=== PATIENT | female | born 1965 | race Caucasian/White ===

== ENCOUNTER → 2016-09-03 | Outpatient (CLI) | payer OTHER ==
[~2016-09-03] MED LIST: ADVA500A INH; ALBU0.08 NEB; ALBU6.7H INH; ALBUAER3 INH; AUGM875 PO; CEPH-460 PO; CLON0.5T PO; LEVO112T2 PO; LEVO75TA42 PO; LORA-361 PO; MAGN400T14 PO; MEDR4PAK3 PO; MULT-135 PO; OXYC1TAB63 PO; PERC5TAB12 PO; PRED20 PO; TOPA50TA7 PO; TOPI50TA4 PO; VENTAER INH; VITA10002 PO; VITA100021 SL; VITA100064 PO
[2016-09-03 15:21] LABS: AUTOMATED NEUTROPHIL # 4.5 TH/MM3 (1.8-7.7); BASOPHIL % 0.4 % (0.0-2.0); EOSINOPHIL # 0.4 TH/MM3 (0-0.4); EOSINOPHIL % 5.5 % (0.0-4.0); HEMATOCRIT 42.5 % (35.0-46.0); HEMO FLAGS DIFF FINAL; LYMPH % 20.7 % (9.0-44.0); LYMPHOCYTE # 1.4 TH/MM3 (1.0-4.8); MEAN CORPUSCULAR HEMOGLOBIN 29.6 PG (27.0-34.0); MEAN CORPUSCULAR HGB CONC 32.6 % (32.0-36.0); MONO % 8.2 % (0.0-8.0); NEUT % 65.2 % (16.0-70.0); PLATELET COUNT 174 TH/MM3 (150-450); RED BLOOD COUNT 4.67 MIL/MM3 (4.00-5.30); RED CELL DISTRIBUTION WIDTH 14.3 % (11.6-17.2); WHITE BLOOD COUNT 6.8 TH/MM3 (4.0-11.0)
[2016-09-03 15:31] LABS: APTT (PATIENT) 28.4 SEC (24.3-30.1); INTERNATIONAL NORMALIZED RATIO 0.9 RATIO; PROTHROMBIN TIME - PATIENT 9.9 SEC (9.8-11.6)
[2016-09-03 15:40] LABS: ALT (GPT) 31 U/L (10-53); ANION GAP 7 MEQ/L (5-15); AST (GOT) 14 U/L (15-37); BLOOD UREA NITROGEN 10 MG/DL (7-18); CHLORIDE 110 MEQ/L (98-107); GLOMERULAR FILTRATION RATE 72 ML/MIN (>89); GLUCOSE,FASTING 110 MG/DL (74-99); POTASSIUM 3.9 MEQ/L (3.5-5.1); SODIUM (NA) 143 MEQ/L (136-145)
[2016-09-03 15:43] LABS: ALKALINE PHOSPHATASE 82 U/L (45-117); TOTAL BILIRUBIN ADULT 0.6 MG/DL (0.2-1.0)
--- NOTE | 2016-09-03 15:58 | RADRPT ---
EXAM DATE/TIME: 09/03/2016 15:40 [place] COMPARISON: No previous studies available for comparison. INDICATIONS : Evaluate for pneumonia, pneumothorax, or communicable disease. Pre op for ovarian surgery. MEDICAL HISTORY : asthma. SURGICAL HISTORY : Right lumpectomy. ENCOUNTER: Initial ACUITY: 1 day PAIN SCORE: 0/10 LOCATION: Bilateral chest FINDINGS: PA and lateral views of the chest demonstrate the lungs to be symmetrically aerated without evidence of mass, infiltrate or effusion. The cardiomediastinal contours are unremarkable. Osseous structure s are intact. CONCLUSION: 1. No acute cardiopulmonary findings. Sushant Chapman MD on September 03, 2016 at 15:55 Board Certified Radiologist. This report was verified electronically.
[2016-09-03 16:08] LABS: BHCG SCREEN QUALITATIVE 2 MIU/ML (0-5)
--- NOTE | 2016-09-04 17:39 | EKG ---
Date Performed: 09/03/2016 Time Performed: 14:45:19 PTAGE: 50 years EKG: Sinus rhythm Since previous tracing, no significant change noted BORDERLINE ECG PREVIOUS TRACING : 10/07/2008 06.12.26 DOCTOR: Yulissa Bazan Interpretating Date/Time 09/04/2016 17:37:50
== END ==
LOC: CPRE 14:12
PROVIDERS: ATTEND Obstetrics & Gynecology Gynecologic Oncology
DX: Z01.810 Encounter for preprocedural cardiovascular examination (principal); Z01.812 Encounter for preprocedural laboratory examination; Z01.818 Encounter for other preprocedural examination; Z15.01 Genetic susceptibility to malignant neoplasm of breast; R94.31 Abnormal electrocardiogram [ECG] [EKG]
CPT/HCPCS: 36415; 71020; 80053; 84703; 85025; 85610; 85730; 93005

== ENCOUNTER 2016-09-13 05:41 | Observation (INO) | payer OTHER ==
[~2016-09-13] VITALS: Ht 170.2 cm; Wt 184.4 kg
[2016-09-13] VITALS (7 sets, daily range): BP systolic 115–135; BP diastolic 55–86; PULSE 63–108; RESP 16–20; TEMP 96–98.1; O2SAT 92–100
[~2016-09-13 05:41] MED LIST changes: -ALBU6.7H INH; -AUGM875 PO; -CEPH-460 PO; -LEVO75TA42 PO; -MEDR4PAK3 PO; -OXYC1TAB63 PO; -PRED20 PO; -TOPI50TA4 PO; -VENTAER INH; -VITA10002 PO
[2016-09-13] MEDS ORDERED: LACTATED RINGER'S 1000 ML IV SCH (06:15)
[2016-09-13] MEDS ORDERED: SODIUM CHLORIDE FLUSH PRN IVF (06:15)
[2016-09-13] MEDS ORDERED: SODIUM CHLORID 0.9% 500 ML IV SCH (06:15)
[2016-09-13] MEDS ORDERED: INSULIN HUMAN REGULAR 1,000 UNITS/10 ML VIAL SQ PRN (06:15)
[2016-09-13] MEDS ORDERED: METOPROLOL TARTRATE 25 MG TAB PO PRN (06:15)
[2016-09-13] MEDS ORDERED: CEPH-460 PO (06:15)
[2016-09-13] MEDS ORDERED: ceFAZolin 2 GM PREMIX 50 ML IV SCH (06:15)
[2016-09-13] MEDS ORDERED: HEPARIN SODIUM - SQ 10,000 UNITS/ML VIAL SQ PRN (06:15)
[2016-09-13] MEDS ORDERED: LIDOCAINE 1%/EPINEPHrine 1:100,000 SOLN 30 ML VIAL ONE (06:57)
[2016-09-13] MEDS ORDERED: HYDROmorphone HCL PF 2 MG/ML VIAL ONE (07:12)
[2016-09-13] MEDS ORDERED: DICLOFENAC SODIUM 37.5 MG/ML VIAL IV PUSH ONE (07:12)
[2016-09-13] MEDS ORDERED: FAMOTIDINE 20 MG/2 ML VIAL ONE (07:29)
[2016-09-13] MEDS ORDERED: MIDAZOLAM HCL 2 MG/2 ML VIAL ONE ×2 (07:29→12:06)
[2016-09-13] MEDS ORDERED: SUGAMMADEX SODIUM 200 MG/2 ML VIAL IV PUSH ONE ×2 (07:33)
[2016-09-13] MEDS ORDERED: SODIUM CHLORIDE FLUSH BID IVF SCH (09:00)
[2016-09-13] MEDS ORDERED: ceFAZolin INJ 1,000 MG VIAL IV ONE (10:10)
[2016-09-13] MEDS ORDERED: METHYLENE BLUE 10 MG/ML VIAL OTHER ONE (10:28)
[2016-09-13] MEDS ORDERED: SODIUM CHLORIDE 0.9% FLUSH 5 ML FLUSH FLUSH PRN (11:30)
[2016-09-13] MEDS ORDERED: ONDANSETRON HCL 4 MG/2 ML VIAL IVP PRN (11:30)
[2016-09-13] MEDS ORDERED: diphenhydrAMINE HCL 25 MG CAP PO PRN (11:30)
[2016-09-13] MEDS ORDERED: oxyCODONE/ACETAMINOPHEN 5 MG/325 MG TAB PO PRN ×2 (11:30)
[2016-09-13] MEDS ORDERED: PROPOFOL 200 MG/20 ML AMP IV ONE (12:00)
[2016-09-13] MEDS ORDERED: ONDANSETRON HCL 4 MG/2 ML VIAL IV PUSH ONE (12:00)
[2016-09-13] MEDS ORDERED: ONDANSETRON INJ 8 MG in DEXTROSE 5% IN WATER INJ 50 ML IV PUSH PRN ×4 (12:00→15:00)
[2016-09-13] MEDS ORDERED: NORMOSOL R INJ 1,000 ML IV ONE (12:00)
[2016-09-13] MEDS ORDERED: PHENYLEPH/NS 1000 MCG/10 ML SYR IV ONE (12:00)
[2016-09-13] MEDS ORDERED: fentaNYL CITRATE 250 MCG/5 ML AMP ONE (12:06)
[2016-09-13] MEDS ORDERED: DO NOT ADM ANY ANTICOAGULANT DRUGS XX PRN (12:30)
[2016-09-13] MEDS: D5-1/2 NS + KCL 20 MEQ INJ 1,000 ML IV SCH ×2 (12:30→18:58)
[2016-09-13] MEDS ORDERED: *morphine SULFATE 8 MG/ML PERIprocedure ONLY ONE (12:38)
[2016-09-13] MEDS: CEPHALEXIN MONOHYDRATE 500 MG CAP PO SCH ×2 (13:00→20:43)
--- NOTE | 2016-09-13 14:54 | PD.ONC.PN ---
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 will continue to monitor Objective Data Date Time Temp Pulse Resp B/P Pulse Ox O2 Delivery O2 Flow Rate FiO2 09/13/16 13:45 98.2 78 16 119/76 96 Nasal Cannula 2 09/13/16 13:30 80 14 132/84 96 09/13/16 13:15 84 14 135/86 95 09/13/16 13:00 75 12 130/86 94 09/13/16 12:45 72 12 138/83 93 09/13/16 12:30 94 12 138/81 96 Nasal Cannula 3 09/13/16 12:15 83 13 138/86 95 09/13/16 12:00 82 16 132/77 98 Simple Mask 6 09/13/16 11:59 97.6 97 12 135/78 98 Simple Mask 6 09/13/16 06:17 98.1 108 20 135/86 95 09/13/16 09/13/16 09/13/16 07:00 15:00 23:00 Intake Total 2000 ml Output Total 550 ml Balance 1450 ml Laboratory Results Laboratory Tests Test 09/13/16 06:10 Blood Type A POSITIVE Antibody Screen NEGATIVE Blood Bank Comment Administered Medications Medications (Trade) Dose Ordered Sig/Janet Route PRN Reason Start Time Stop Time Status Last Admin Dose Admin Potassium Chloride/Dextrose/ Sod Cl (D5-1/2 NS + KCl 20 Meq Inj) 1,000 ml @ 125 mls/hr Q8H IV 09/13/16 11:29 09/13/16 12:30 Oxycodone/ Acetaminophen (Percocet 5-325 Mg) 2 tab Q4H PRN PO PAIN SCALE 6 TO 10 09/13/16 11:30 09/13/16 14:28 Objective Remarks GENERAL: Well-nourished, well-developed patient. in NAD SKIN: Warm and dry. HEAD: Normocephalic. EYES: No scleral icterus. No injection or drainage. CARDIOVASCULAR: Regular rate and rhythm without murmurs. RESPIRATORY: Breath sounds equal bilaterally. No accessory muscle use. GASTROINTESTINAL: Obese, Abdomen soft, non-tender, nondistended. SS are C/D/I EXTREMITIES: TEDs and SCDs... equal jewelsmith strength, normal ROM to fingers. NEUROLOGICAL: No obvious focal deficit. Awake but sleepy and oriented x3. PSYCHIATRIC: Appropriate mood and affect; insight and judgment normal. Assessment/Plan Problem List: (1) Post-operative pain Status: Acute Plan: Percocet PRN Toradol as scheduled (2) Nausea after anesthesia Status: Acute Plan: Zofran PRN (3) Post-operative state Status: Acute Plan: post op orders are in chart encourage IS to bedside OOB to chair ADAT anticipate D/C home in the next 24 to 48 hours Josseline Reed Sep 13, 2016 14:54
[2016-09-13] MEDS ORDERED: ONDANSETRON HCL 4 MG/2 ML VIAL IV PUSH PRN (15:00)
[2016-09-13] MEDS: RESP: ALBUTEROL 2.5 MG/3 ML NEB (SCH) NEB ×2 (16:00→21:11)
[2016-09-13] MEDS: HYDROmorphone HCL PF 1 MG/ML VIAL IVP PRN (16:00)
[2016-09-13] MEDS: clonazePAM 0.5 MG TAB PO SCH (18:05)
[2016-09-13] MEDS: KETOROLAC TROMETHAMINE 30 MG/ML (IVP) VIAL IVP SCH ×2 (18:06→23:25)
[2016-09-13] MEDS ORDERED: METOCLOPRAMIDE HCL 10 MG/2 ML VIAL IV ONE (19:15)
[2016-09-13] MEDS ORDERED: METOCLOPRAMIDE HCL 10 MG/2 ML VIAL IV PRN (19:15)
[2016-09-13] MEDS: BUDESONIDE-FORMOTEROL 160/4.5 MCG INHALER INH SCH (20:34)
[2016-09-13] MEDS ORDERED: SODIUM CHLORIDE 0.9% FLUSH 5 ML FLUSH FLUSH SCH (21:00)
[2016-09-14] VITALS: BP 109/71; PULSE 82; RESP 16; TEMP 97.8; O2SAT 98
[2016-09-14 04:00] VITALS: BP 109/56; PULSE 81; RESP 16; TEMP 97.6; O2SAT 96
[2016-09-14] MEDS: D5-1/2 NS + KCL 20 MEQ INJ 1,000 ML IV SCH (04:36)
[2016-09-14] MEDS: HYDROmorphone HCL PF 1 MG/ML VIAL IVP PRN (04:37)
[2016-09-14] MEDS: RESP: ALBUTEROL 2.5 MG/3 ML NEB (SCH) NEB ×2 (04:39→10:01)
[2016-09-14] MEDS ORDERED: LEVOTHYROXINE SODIUM 112 MCG TAB PO SCH (06:00)
[2016-09-14] MEDS: CEPHALEXIN MONOHYDRATE 500 MG CAP PO SCH (06:15)
[2016-09-14] MEDS: KETOROLAC TROMETHAMINE 30 MG/ML (IVP) VIAL IVP SCH (06:26)
[2016-09-14 07:07] LABS: BICARBONATE 25.3 MEQ/L (21.0-32.0); POTASSIUM 3.9 MEQ/L (3.5-5.1)
[2016-09-14] MEDS ORDERED: OXYC1TAB63 PO (07:18)
[2016-09-14 07:43] LABS: AUTOMATED NEUTROPHIL # 11.9 TH/MM3 (1.8-7.7); BASOPHIL # 0.1 TH/MM3 (0-0.2); BASOPHIL % 0.9 % (0.0-2.0); EOSINOPHIL % 0.2 % (0.0-4.0); LYMPH % 10.6 % (9.0-44.0); LYMPHOCYTE # 1.6 TH/MM3 (1.0-4.8); MEAN CELL VOLUME 89.3 FL (80.0-100.0); MEAN CORPUSCULAR HEMOGLOBIN 29.7 PG (27.0-34.0); MEAN CORPUSCULAR HGB CONC 33.3 % (32.0-36.0); MONO % 8.8 % (0.0-8.0); NEUT % 79.5 % (16.0-70.0); PLATELET COUNT 141 TH/MM3 (150-450); RED BLOOD COUNT 4.36 MIL/MM3 (4.00-5.30)
[2016-09-14 07:58] LABS: HEMO FLAGS AUTO DIFF; SCAN/DIFF AUTO DIFF CONFIRMED
[2016-09-14 07:59] LABS: PLATELET ESTIMATE SMEAR LOW (NORMAL); PLATELET MORPHOLOGY ENLARGED (NORMAL)
[2016-09-14 08:00] VITALS: BP 101/60; PULSE 82; RESP 16; TEMP 96.5; O2SAT 94
[2016-09-14] MEDS ORDERED: LORATADINE 10 MG TAB PO SCH (09:00)
[2016-09-14] MEDS ORDERED: TOPIRAMATE 25 MG TAB PO SCH (09:00)
[2016-09-14] MEDS: BUDESONIDE-FORMOTEROL 160/4.5 MCG INHALER INH SCH (09:00)
[2016-09-14 10:07] VITALS: O2SAT 99
[2016-09-14] MEDS: clonazePAM 0.5 MG TAB PO SCH (10:14)
--- NOTE | 2016-09-16 07:34 | MP ---
cc: LORRAINE MOLINA MD, KELLY L. MD DATE OF SURGERY: 09/13/2016 PREOPERATIVE DIAGNOSIS: 1. Premenopausal breast cancer. 2. BRCA mutation positive. 3. Desires therapeutic and prophylactic gynecologic surgery. POSTOPERATIVE DIAGNOSIS: 1. Premenopausal breast cancer. 2. BRCA mutation positive. 3. Desires therapeutic and prophylactic gynecologic surgery. OPERATION: Robotic-assisted laparoscopic hysterectomy, bilateral salpingo-oophorectomy. SURGEON Bianka Casillas MD. DENTAL LAB TECHNICIAN [place] assistant quality manager ANESTHESIA: General endotracheal anesthesia ESTIMATED BLOOD LOSS 200 cc IV FLUIDS 2000 cc URINE OUTPUT 250 cc HISTORY The patient is a 50-year-old female with diagnosis of premenopausal breast cancer treated with lumpectomy, radiation and medical therapy, underwent counseling and genetic testing found to have be have BRCA positive mutation. She has been counseled regarding these findings an increased risk of ovarian cancer, possible increased risk of endometrial cancer from her BRCA status, certainly at increased risk of endometrial cancer because of her body weight of 189 kg (BMI 68.2) and she is in favor of both bilateral salpingo-oophorectomy as well as complete hysterectomy. She has been counseled in our office. She is seen again today in the preop holding area where she is definitely in favor of hysterectomy and bilateral salpingo-oophorectomy. She understands the technical challenges involved in her case, the potential need to change to laparotomy, and we compared and contrasted surgery and recovery. She expressed good understanding and agrees. FINDINGS Uterine cavity sounded to 9 cm. There seems to be fundal leiomyoma otherwise the uterus appears normal. Tubes and ovaries grossly appear normal. Small nodule on the right ovary. There is no appreciable adenopathy. The intraperitoneal surfaces are smooth. There is no peritoneal implants. Preliminary pathology of the uterus showed a benign polyp in the endometrium and a benign nodule on the ovary. No evidence of malignancy. STATEMENT OF COMPLEXITY The complexity of this case was increased at all levels due to body habitus (weight 189 kg, BMI 68.2). Modifier should be applied accordingly. DESCRIPTION OF PROCEDURE: The patient taken to the operating room after a bariatric operating table had been secured, moved to the bed, placed in dorsolithotomy position after general endotracheal anesthesia was administered. Time-out was undertaken. The patient was identified by sight, recognition and hospital ID bracelet. She was carefully positioned in padded Dashawn stirrups. Her arms were padded and secured to the sides. She was further secured to the operating table with egg crate padding and tape in across chest over the shoulder fashion. All sites carefully inspected noted be properly aligned with no malalignments or pressure points. It was also noted that additional padding had been placed underneath the hips and along the torso between the arms and underneath the head and neck. She was prepped in sterile fashion, draped below the waist, placed in high lithotomy position. The cervix was grasped, uterine cavity was sounded, cervix was dilated. Large VCare manipulator inserted and secured in usual fashion. Woods catheter placed in the bladder. She was returned to low lithotomy position, change of sterile gloves was undertaken. We completed draping in anticipation of laparoscopy and confirmed that an orogastric airway was in the stomach on suction. With manual elevation of the abdominal wall and direct laparoscopic visualization 5 mm cannula placed in the left upper quadrant and atraumatic entry was confirmed. Carbon dioxide gas was insufflated into the peritoneal cavity. A 12 mm cannula placed in midline above the umbilicus, 8 mm cannula was placed in the right upper abdomen and left lateral abdomen and the original 5-mm cannula was exchanged for an 8-mm cannula. She was placed in Trendelenburg position and the Trendelenburg position was reduced a few degrees, and the intraperitoneal pressure was reduced from 15 to 12 with a CO2 infusion which helped improve for tidal volume and ventilatory pressures as well as her carbon dioxide levels that was met with satisfaction by the anesthesia team. The anatomy was surveyed with findings as described above. The small bowel was folded back on its mesenteric root, three Ray-Leyda sponges were placed around the root of the small bowel mesentery. The robotic system was brought into the operative field and attached in the usual fashion. Monopolar scissors, fenestrated bipolar forceps and Prograsp manipulators were placed in arms #1 2 and [address] my place at the surgeon's console. Right round ligament isolated, cauterized, transected. The anterior and posterior leafs of the broad ligament were opened. The right ureter was identified. The right infundibulopelvic ligament was isolated. The infundibulopelvic ligament was isolated to the level of the pelvic brim where it was cauterized and transected. Posterior peritoneum opened along the right side of the uterus and cervix, and the right vesicouterine peritoneum dissected off the lower uterine segment and cervix. The right uterine vessels were skeletonized, cauterized and transected as were the cardinal, paracervical and uterosacral ligaments. Attention was directed toward the left side where some adhesions were taken down to mobilize the colon and its attachments across the left pelvic sidewall. The left round ligament was isolated, caugerized, transected. The anterior and posterior leafs of the broad ligament were opened. The let ureter was identified. The left infundibulopelvic ligament was isolated. The intervening peritoneum was opened. The infundibulopelvic ligament was isolated to the level of the pelvic brim where it was cauterized and transected. Posterior peritoneum opened along the left side of the uterus and cervix. The left vesicouterine peritoneum was dissected off the lower uterine segment and cervix. The left uterine vessels were skeletonized, cauterized and transected as were the cardinal, paracervical and uterosacral ligaments. Circumferential colpotomy was performed following the cap of the VCare manipulator, the cervix from the upper vagina. The specimen was withdrawn transvaginally which included uterus, cervix, bilateral tubes and ovaries, and a pneumo-occluder balloon was placed in the vagina to maintain pneumoperitoneum. Instruments one and three exchanged for needle drivers as 0 Vicryl suture was introduced. The vaginal cuff was closed starting at the left corner, full thickness closure including the posterior peritoneum and uterosacral ligament tied via instrument tie. The closure was held on countertraction as a running continuous full-thickness closure was carried across the vaginal apex to the contralateral corner where it was similarly fixed, tied via instrument tie. The needle was cut and removed. The integrity of the bladder was confirmed by filling the bladder with saline dyed with methylene blue. The bladder distended nicely under pressure. There were no areas of blue to suggest thinning of the bladder. There was a good margin between the bladder edge and the vaginal cuff suture line. Good peristalsis of ureters bilaterally. The bladder was drained. The pelvis was thoroughly irrigated. Small bleeders rendered hemostatic with bipolar cautery and Latonya hemostatic agent was placed across the vaginal cuff and lateral pelvic sidewalls. Pathology came back showing no evidence of malignancy. It was felt that all reasonable surgical objectives had been completed so the robotic instruments were removed. The robotic system was disengaged from the operative field, and I reentered the bedside under sterile condition. Each of the three Ray-Leyda sponges that had been placed in the peritoneal cavity were now removed individually through the 12-mm cannula. Each were inspected, noted to be removed in their entirety. Preliminary counts were correct. There were no remaining foreign objects in the peritoneal cavity and attention was directed toward closing. A 12 mm fascial defect was closed with interrupted 0 Vicryl sutures using a needle pass fascia closure apparatus. The sutures were tied securely which rendered the fascia completely airtight and hemostatic. The remaining cannulas were withdrawn. Carbon dioxide gas was removed from the peritoneal cavity. 3-0 Vicryl subcutaneous, 3-0 Vicryl subcuticular were used to close the skin incisions and Steri-Strips. dry sterile dressings were placed over these incisions. She was returned to dorsal lithotomy position. Pelvic exam confirmed that the vaginal cuff was well supported hemostatic. There were no vaginal lacerations. No remaining foreign objects in the vagina. Final counts were correct. She was returned to dorsal supine position and was pending reversal of anesthesia when I left the operating room to precede her to the Post Anesthesia Care Unit and to speak with family members. MD FAVIO Small/LARRY /12:20 PM /6:54 AM
--- NOTE | 2016-09-18 21:42 | MD ---
cc: FERNY HENSON MD,BLADIMIR BAY MD ADMISSION DATE: 09/13/2016 DISCHARGE DATE: 09/14/2016 PROCEDURE: 09/13/2016, robotic-assisted laparoscopic hysterectomy, bilateral salpingo-oophorectomy. DIAGNOSIS Premenopausal breast cancer BRCA mutation positive, desire for prophylactic and therapeutic gynecologic surgery. HOSPITAL COURSE She did well during early postoperative period. Electrolytes, BUN and creatinine 10 and 0.94. Potassium 3.9. Glucose slightly elevated at 139. CBC pending. Intake and output 3680/1150. PHYSICAL EXAMINATION Afebrile, pulse 81, respirations 16, blood pressure 109/56, O2 saturations 96%. Alert and oriented x3. Lungs are clear, mild rales at the bases. Cardiovascular: Regular rate and rhythm. Incisions are clean and dry. Abdomen: Soft. 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 Extremities: Nontender. ASSESSMENT Postop day #1, tolerating oral intake. Woods catheter removed pending voiding, hemodynamically stable. FINDINGS: Preliminary pathology from surgery discussed, activities, restrictions reviewed. Questions were answered. She expressed good understanding. PLAN Anticipate the patient will meet criteria for discharge and plan for discharge home today. She is to resume her prior medications. Prescription provided for Percocet. Office number is made available. She is to contact our office to schedule follow up in 2 weeks or to call us in the interim should there be any questions or problems. MD FAVIO Small/LARRY /7:22 AM /9:33 PM
== END 2016-09-14 13:17 | disposition home or self-care (01) ==
LOC: HSDC 05:41 → HSDI 11:32 → HOCB 14:00
PROVIDERS: ADMIT Obstetrics & Gynecology Gynecologic Oncology; ATTEND Obstetrics & Gynecology Gynecologic Oncology
DX: Z15.02 Genetic susceptibility to malignant neoplasm of ovary (principal); N80.0 Endometriosis of uterus; N83.8 Other noninflammatory disorders of ovary, fallopian tube and broad ligament; C50.919 Malignant neoplasm of unspecified site of unspecified female breast; J45.909 Unspecified asthma, uncomplicated
CPT/HCPCS: 00840; 58552; 76937; 80048; 85025; 86850; 86900; 86901; 88307; 88331; 94150; 94640; 94664; G0378; J0690; J1130; J1170; J1644; J1885; J2250; J2270; J2370; J2405; J2765; J3010; J3480; J7120; J7613